=== PATIENT | male | born 1930 | race Caucasian/White ===

== ENCOUNTER → 2016-12-13 | Outpatient (CLI) | payer OTHER ==
[~2016-12-13] MED LIST: /WARF25TA OR; /WARF25TA PO; ACET65TA OR; ALLOPOW4 PO; ASCO25TA PO; ASPI81TA85 PO; AUGM875T27 PO; BISO5TAB5 PO; CLOP75TA2 PO; COLA100C2 OR; COUM2.5T11 PO; DOXYCYCLINE PO; FERR325T OR; FLAG250T PO; GABA-282 PO; GABAPOW41 PO; HYDR25TA6 OR; LISI20TA PO; LISIPOW OR; MULTIVIT PO; NEUR400C OR; NEUROTIN PO; PERC2.5T PO; PERC5TAB8 OR; PLAV75TA38 PO; SIMV20TA2 PO; SIMVASTIN PO; TRAM50TA2 OR; TYLE167L PO; VIT D 2000 PO; VITA100037 PO; VITA100072 PO; VITA500C OR; VITA500T53 PO; ZYLO300T4 PO
--- NOTE | 2016-12-13 17:45 | REP ---
LEFT NONVASCULAR CALF ULTRASOUND: HISTORY: Pain and swelling. Multiple ultrasonographic images of the left calf show no cystic or solid masses. This examination does not rule out a calf DVT. In order to rule out or rule in a calf DVT, magnetic resonance venography could be performed. Signed by Rene Novak DO 12/13/2016 06:04 P
--- NOTE | 2016-12-13 17:46 | REP ---
LEFT LOWER EXTREMITY ULTRASOUND: HISTORY: Pain and swelling. TECHNIQUE: Multiple ultrasonographic images of the deep venous structures of the left thigh were obtained from the common femoral vein to the popliteal vein along with Doppler interrogation and color flow Doppler images. FINDINGS: There is no abnormal echogenic material seen within any of the visualized deep venous structures that would suggest acute thrombosis. Coaptation is unremarkable throughout. Doppler interrogation shows an expected response to respiratory variability and augmentation. The color flow images show what appears to be a normal vascular pattern throughout. IMPRESSION: There is no ultrasonographic evidence of deep venous thrombosis involving any of the visualized deep venous structures of the left thigh, as described above. Signed by Rene Novak DO 12/13/2016 06:03 P
== END ==
LOC: M RAD 16:37
PROVIDERS: ATTEND Physician Assistant
DX: R22.42 Localized swelling, mass and lump, left lower limb (principal)

== ENCOUNTER 2017-01-05 15:40 | Emergency (ER) | payer OTHER ==
[~2017-01-05] VITALS: Ht 167.6 cm; Wt 73.1 kg
[~2017-01-05 15:40] MED LIST changes: -AUGM875T27 PO; +AUGM875T28 PO; -COUM2.5T11 PO; +COUM2.5T17 PO; +PLAV1TAB2 PO; -PLAV75TA38 PO; -VITA100037 PO; +VITA100067 PO
[2017-01-05] MEDS ORDERED: GABA-283 (15:56)
[2017-01-05] MEDS ORDERED: CARV6.25 (15:56)
[2017-01-05] MEDS ORDERED: CLOP75TA2 (15:56)
--- NOTE | 2017-01-05 16:42 | REP ---
PORTABLE CHEST: There is no evidence of acute infiltrate. No pleural effusion is seen. The heart is normal in size. The mediastinal silhouette is unremarkable. The visualized osseous structures are intact. Multiple sternal wires are present. IMPRESSION: No acute pulmonary disease. Signed by Broderick Franklin MD 01/05/2017 05:16 P
[2017-01-05 17:01] LABS: BASO % 0.5 % (0.0-1.0); EOS # 0.1 K/mm3 (0.0-0.50); EOS % 2.8 % (0.0-3.0); LARGE UNSTAINED CELL # 0.1 K/mm3 (0.0-0.4); LARGE UNSTAINED CELL % 2.3 % (0.0-4.0); LYMPH # 0.9 K/mm3 (1.5-4.5); MEAN CORPUSCULAR HEMOGLOBIN 39.4 pg (27.0-33.0); MEAN CORPUSCULAR HGB CONC 36.1 g/dl (32.0-36.5); MEAN CORPUSCULAR VOLUME 109.1 fl (80.0-96.0); MONO # 0.3 K/mm3 (0.0-0.8); MONO % 9.9 % (0.0-5.0); NEUTROPHILS % 60.6 % (36.0-66.0); PLATELET COUNT, AUTOMATED 133 k/mm3 (150-450); RED CELL DISTRIBUTION WIDTH 15.9 % (11.5-14.5); WHITE BLOOD COUNT 3.2 K/mm3 (4.0-10.0)
[2017-01-05 17:03] LABS: INR 0.94
[2017-01-05 17:17] LABS: ALBUMIN 3.4 GM/DL (3.2-5.2); ALBUMIN/GLOBULIN RATIO 1.13 (1.00-1.93); ALKALINE PHOSPHATASE 106 U/L (45-117); ALT/SGPT 23 U/L (12-78); ANION GAP 7 MEQ/L (8-16); AST/SGOT 26 U/L (15-37); BILIRUBIN,DIRECT 0.1 MG/DL (0.0-0.2); BILIRUBIN,TOTAL 0.7 MG/DL (0.2-1.0); BLOOD UREA NITROGEN 34 MG/DL (7-18); CALCIUM LEVEL 8.7 MG/DL (8.8-10.2); CARBON DIOXIDE LEVEL 26 MEQ/L (21-32); CHLORIDE LEVEL 108 MEQ/L (98-107); CREATININE FOR GFR 1.58 MG/DL (0.70-1.30); FREE T4 0.81 NG/DL (0.76-1.46); GLOMERULAR FILTRATION RATE 44.5 (>35); GLUCOSE, FASTING 125 MG/DL (83-110); POTASSIUM SERUM 4.4 MEQ/L (3.5-5.1); SODIUM LEVEL 141 MEQ/L (136-145); TOTAL PROTEIN 6.4 GM/DL (6.4-8.2)
[2017-01-05 17:19] LABS: ANISOCYTOSIS 1+
[2017-01-05] MEDS ORDERED: ASPIRIN 81 MG CHEW TABLET PO ONE (18:00)
[2017-01-05 19:33] VITALS: BP 143/65
--- NOTE | 2017-01-06 06:04 | ECGEPIP ---
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
== END 2017-01-05 19:35 | disposition short-term general hospital (02) ==
LOC: M ED 16:56
DX: I20.0 Unstable angina (principal); I12.9 Hypertensive chronic kidney disease with stage 1 through stage 4 chronic kidney disease, or unspecified chronic kidney disease; N18.3 Chronic kidney disease, stage 3 (moderate); E78.5 Hyperlipidemia, unspecified; K57.90 Diverticulosis of intestine, part unspecified, without perforation or abscess without bleeding; Z95.5 Presence of coronary angioplasty implant and graft; Z87.891 Personal history of nicotine dependence; Z79.899 Other long term (current) drug therapy; Z88.2 Allergy status to sulfonamides; Z88.5 Allergy status to narcotic agent

== ENCOUNTER → 2017-01-30 | Outpatient (REF) | payer OTHER ==
[~2017-01-30] MED LIST changes: +CARV6.25; +CLOP75TA2; +GABA-283; +MECL-68 PO; +MINO1CAP
== END ==
LOC: M LAB REF 12:54
PROVIDERS: ATTEND Internal Medicine
DX: E78.00 Pure hypercholesterolemia, unspecified (principal)

== ENCOUNTER 2017-02-01 08:03 | Outpatient (RCR) | payer OTHER ==
[~2017-02-01 08:03] MED LIST changes: -MECL-68 PO; -MINO1CAP
[2017-02-06] MEDS ORDERED: MINO1CAP (13:27)
[2017-02-06] MEDS ORDERED: MECL-68 PO (15:18)
== END 2017-02-13 ==
LOC: M CR 08:03
PROVIDERS: ATTEND Internal Medicine Cardiovascular Disease
DX: Z98.61 Coronary angioplasty status (principal); I25.10 Atherosclerotic heart disease of native coronary artery without angina pectoris

== ENCOUNTER 2017-02-06 12:49 | Emergency (ER) | payer OTHER ==
[~2017-02-06] VITALS: Ht 167.6 cm; Wt 70.9 kg
[2017-02-06] MEDS ORDERED: NS 500 ML IV ONE (13:15)
[2017-02-06] MEDS ORDERED: MINO1CAP (13:27)
[2017-02-06 14:16] LABS: BASO # 0.1 K/mm3 (0.0-0.2); BASO % 2.8 % (0.0-1.0); EOS # 0.1 K/mm3 (0.0-0.50); EOS % 3.9 % (0.0-3.0); LARGE UNSTAINED CELL # 0.1 K/mm3 (0.0-0.4); LARGE UNSTAINED CELL % 4.3 % (0.0-4.0); LYMPH # 0.6 K/mm3 (1.5-4.5); LYMPH % 18.7 % (24.0-44.0); MEAN CORPUSCULAR HEMOGLOBIN 37.9 pg (27.0-33.0); MEAN CORPUSCULAR HGB CONC 34.7 g/dl (32.0-36.5); MEAN CORPUSCULAR VOLUME 109.2 fl (80.0-96.0); MONO # 0.3 K/mm3 (0.0-0.8); MONO % 8.4 % (0.0-5.0); NEUTROPHILS # 2.1 K/mm3 (1.8-7.7); NEUTROPHILS % 61.9 % (36.0-66.0); PLATELET COUNT, AUTOMATED 139 k/mm3 (150-450); RED CELL DISTRIBUTION WIDTH 15.7 % (11.5-14.5); WHITE BLOOD COUNT 3.4 K/mm3 (4.0-10.0)
[2017-02-06 14:30] LABS: ALBUMIN 3.4 GM/DL (3.2-5.2); ALBUMIN/GLOBULIN RATIO 1.31 (1.00-1.93); BILIRUBIN,DIRECT 0.2 MG/DL (0.0-0.2); BILIRUBIN,TOTAL 0.7 MG/DL (0.2-1.0); CALCIUM LEVEL 8.9 MG/DL (8.8-10.2); CREATININE FOR GFR 1.45 MG/DL (0.70-1.30); GLOMERULAR FILTRATION RATE 49.1 (>35)
[2017-02-06] MEDS ORDERED: MECLIZINE 25 MG TABLET PO ONE (15:00)
[2017-02-06] MEDS ORDERED: MECL-68 PO (15:18)
[2017-02-06 15:22] VITALS: BP 138/60
--- NOTE | 2017-02-07 09:00 | ECGEPIP ---
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
== END 2017-02-06 15:34 | disposition home or self-care (01) ==
LOC: M ED 12:49
DX: R42 Dizziness and giddiness (principal); D61.818 Other pancytopenia; Z95.1 Presence of aortocoronary bypass graft; Z98.61 Coronary angioplasty status; Z88.2 Allergy status to sulfonamides; Z88.5 Allergy status to narcotic agent; Z79.82 Long term (current) use of aspirin; Z79.899 Other long term (current) drug therapy

== ENCOUNTER 2017-03-15 10:15 | Outpatient (RCR) | payer OTHER ==
[~2017-03-15 10:15] MED LIST changes: +MECL-68 PO; +MINO1CAP
== END 2017-03-16 ==
LOC: M CR 10:15
PROVIDERS: ATTEND Internal Medicine Cardiovascular Disease
DX: Z98.61 Coronary angioplasty status (principal); I25.10 Atherosclerotic heart disease of native coronary artery without angina pectoris

== ENCOUNTER 2017-04-14 11:07 | Outpatient (RCR) | payer OTHER | END 2017-04-15 | LOC: M CR 11:07 | PROVIDERS: ATTEND Internal Medicine Cardiovascular Disease | DX: Z98.61 Coronary angioplasty status (principal); I25.10 Atherosclerotic heart disease of native coronary artery without angina pectoris ==

== ENCOUNTER → 2017-08-08 | Outpatient (REF) | payer OTHER ==
[2017-08-08 20:20] LABS: FOLATE 20.9 NG/ML; VITAMIN B12 LEVEL 913 PG/ML
[2017-08-08 20:21] LABS: IRON (FE) 93 UG/DL (65-175); PERCENT SATURATION 43.3 % (19.7-50.0); TOTAL IRON BINDING CAPACITY 215 UG/DL (250-450); TOTAL PROTEIN 6.1 GM/DL (6.4-8.2)
[2017-08-10 10:42] LABS: ALBUMIN 3.82 GM/DL (3.29-5.55); ALBUMIN % 62.7 % (55.8-66.1); ALPHA-1-GLOBULIN % 5.2 % (2.9-4.9); ALPHA-1-GLOBULINS 0.32 GM/DL (0.17-0.41); ALPHA-2-GLOBULINS 0.54 GM/DL (0.42-0.99); ALPHA-2-GLOBULINS % 8.9 % (7.1-11.8); BETA-1-GLOBULINS % 4.9 % (4.7-7.2); BETA-2-GLOBULINS 0.25 GM/DL (0.19-0.55); BETA-2-GLOBULINS % 4.1 % (3.2-6.5); GAMMA GLOBULIN % 14.2 % (11.1-18.8); GAMMA GLOBULINS 0.87 GM/DL (0.65-1.58)
== END ==
LOC: M LAB REF 17:25
DX: D51.9 Vitamin B12 deficiency anemia, unspecified (principal); D64.9 Anemia, unspecified
CPT/HCPCS: 82746

== ENCOUNTER → 2017-08-21 | Outpatient (CLI) | payer OTHER | LOC: M RAD 10:07 | DX: M79.605 Pain in left leg (principal) | CPT/HCPCS: 93971 ==

== ENCOUNTER 2017-12-07 08:02 | Emergency (ER) | payer OTHER ==
[2017-12-07 09:02] LABS: BASO % 0.8 % (0.0-1.0); EOS # 0.1 10^3/uL (0.0-0.50); HEMATOCRIT 29.5 % (42.0-52.0); HEMOGLOBIN 10.1 g/dl (13.5-17.5); LYMPH # 0.8 10^3/uL (1.5-4.5); LYMPH % 20.5 % (24.0-44.0); MEAN CORPUSCULAR HEMOGLOBIN 36.5 pg (27.0-33.0); MEAN CORPUSCULAR HGB CONC 34.2 g/dl (32.0-36.5); MEAN CORPUSCULAR VOLUME 106.5 fl (80.0-96.0); MONO # 0.5 10^3/uL (0.0-0.8); MONO % 12.4 % (0.0-5.0); NEUTROPHILS # 2.5 10^3/uL (1.8-7.7); NEUTROPHILS % 63.3 % (36.0-66.0); PLATELET COUNT, AUTOMATED 105 10^3/uL (150-450); RED BLOOD COUNT 2.77 10^6/uL (4.30-6.10); RED CELL DISTRIBUTION WIDTH 15.6 % (11.5-14.5)
[2017-12-07 10:09] LABS: ANION GAP 6 MEQ/L (8-16); BLOOD UREA NITROGEN 28 MG/DL (7-18); CALCIUM LEVEL 8.2 MG/DL (8.8-10.2); CARBON DIOXIDE LEVEL 26 MEQ/L (21-32); CHLORIDE LEVEL 112 MEQ/L (98-107); CPK CREATINE PHOSPHOKINASE 72 U/L (39-308); CREATININE FOR GFR 1.37 MG/DL (0.70-1.30); GLOMERULAR FILTRATION RATE 52.3 (>35); GLUCOSE, FASTING 105 MG/DL (70-100); POTASSIUM SERUM 4.3 MEQ/L (3.5-5.1); SODIUM LEVEL 144 MEQ/L (136-145); TROPONIN I < 0.02 NG/ML (< 0.10)
[2017-12-07 10:10] LABS: CK-MB VALUE MASS 4.4 NG/ML (<3.6); MB/CK RELATIVE INDEX 6.11 (< OR =4)
[2017-12-07 11:38] LABS: CPK CREATINE PHOSPHOKINASE 63 U/L (39-308); TROPONIN I < 0.02 NG/ML (< 0.10)
[2017-12-07 11:39] LABS: CK-MB VALUE MASS 4.2 NG/ML (<3.6); MB/CK RELATIVE INDEX 6.66 (< OR =4)
== END 2017-12-07 12:42 | disposition home or self-care (01) ==
LOC: M ED 08:02
DX: I20.8 Other forms of angina pectoris (principal); R00.1 Bradycardia, unspecified; I25.10 Atherosclerotic heart disease of native coronary artery without angina pectoris; I25.2 Old myocardial infarction; I10 Essential (primary) hypertension; E78.5 Hyperlipidemia, unspecified; K21.9 Gastro-esophageal reflux disease without esophagitis; M10.9 Gout, unspecified; N18.3 Chronic kidney disease, stage 3 (moderate); Z87.442 Personal history of urinary calculi; Z95.5 Presence of coronary angioplasty implant and graft; Z95.1 Presence of aortocoronary bypass graft; Z79.82 Long term (current) use of aspirin; Z79.899 Other long term (current) drug therapy; Z88.5 Allergy status to narcotic agent; Z88.2 Allergy status to sulfonamides
CPT/HCPCS: 71045

== ENCOUNTER 2017-12-16 07:51 | Emergency (ER) | payer OTHER ==
[2017-12-16] MEDS: NORCO, ANEXSIA 5/325MG TABLET (HYDROcodone/ACETAMINOPHEN) PO (09:14)
== END 2017-12-16 09:41 | disposition home or self-care (01) ==
LOC: M ED 07:51
DX: M51.36 Other intervertebral disc degeneration, lumbar region (principal); M51.37 Other intervertebral disc degeneration, lumbosacral region; I12.9 Hypertensive chronic kidney disease with stage 1 through stage 4 chronic kidney disease, or unspecified chronic kidney disease; E78.9 Disorder of lipoprotein metabolism, unspecified; N18.9 Chronic kidney disease, unspecified; Z95.5 Presence of coronary angioplasty implant and graft; Z95.1 Presence of aortocoronary bypass graft; Z98.1 Arthrodesis status; Z87.891 Personal history of nicotine dependence; Z88.5 Allergy status to narcotic agent; Z88.2 Allergy status to sulfonamides; Z79.899 Other long term (current) drug therapy; Z79.82 Long term (current) use of aspirin
CPT/HCPCS: 72131

== ENCOUNTER 2018-05-02 11:25 | Day surgery (SDC) | payer OTHER ==
[~2018-05-02 11:25] MED LIST changes: -/WARF25TA OR; -/WARF25TA PO; -ACET65TA OR; -ALLOPOW4 PO; -ASCO25TA PO; -ASPI81TA85 PO; -AUGM875T28 PO; -BISO5TAB5 PO; -CARV6.25; -CLOP75TA2; -CLOP75TA2 PO; -COLA100C2 OR; -COUM2.5T17 PO; -DOXYCYCLINE PO; -FERR325T OR; -FLAG250T PO; -GABA-282 PO; -GABA-283; -GABAPOW41 PO; -HYDR25TA6 OR; +LIDOCAINE 2% INJ 100 MG/5 ML SDV (FOR ANES.) As Ordered; -LISI20TA PO; -LISIPOW OR; -MECL-68 PO; -MINO1CAP; -MULTIVIT PO; -NEUR400C OR; -NEUROTIN PO; -PERC2.5T PO; -PERC5TAB8 OR; -PLAV1TAB2 PO; +PROPOFOL 200 MG/20 ML VIAL As Ordered; -SIMV20TA2 PO; -SIMVASTIN PO; -TRAM50TA2 OR; -TYLE167L PO; -VIT D 2000 PO; -VITA100067 PO; -VITA100072 PO; -VITA500C OR; -VITA500T53 PO; -ZYLO300T4 PO
== END 2018-05-02 13:51 | disposition home or self-care (01) ==
LOC: M OPP 11:25
DX: K64.0 First degree hemorrhoids (principal); K57.30 Diverticulosis of large intestine without perforation or abscess without bleeding; R63.4 Abnormal weight loss; R93.3 Abnormal findings on diagnostic imaging of other parts of digestive tract; I10 Essential (primary) hypertension; E78.00 Pure hypercholesterolemia, unspecified; E03.9 Hypothyroidism, unspecified; K21.9 Gastro-esophageal reflux disease without esophagitis; M12.9 Arthropathy, unspecified; D64.9 Anemia, unspecified; I25.810 Atherosclerosis of coronary artery bypass graft(s) without angina pectoris; Z79.899 Other long term (current) drug therapy; Z88.2 Allergy status to sulfonamides; Z88.5 Allergy status to narcotic agent; Z87.891 Personal history of nicotine dependence; Z95.5 Presence of coronary angioplasty implant and graft; Z98.1 Arthrodesis status
CPT/HCPCS: 45378

== ENCOUNTER 2018-07-10 16:54 | Emergency (ER) | payer OTHER ==
[~2018-07-10] VITALS: Ht 165.1 cm; Wt 64.1 kg
[~2018-07-10 16:54] MED LIST changes: +/WARF25TA OR; +/WARF25TA PO; +ACET65TA OR; +ALLOPOW4 PO; +ASCO25TA PO; +ASPI81TA85 PO; +ATOR1TAB21 PO; +AUGM875T28 PO; +BISO5TAB5 PO; +CARV6.25; +CLOP75TA2; +CLOP75TA2 PO; +COLA100C2 OR; +COUM2.5T17 PO; +DOXY-350 PO; +DOXYCYCLINE PO; +FERR325T OR; +FLAG250T PO; +GABA-843 PO; +GABA-845 PO; +GABAPOW41 PO; +HYDR25TA6 OR; +ISOS30TA4 PO; +LEVO25TA5 PO; +LEXA1TAB PO; -LIDOCAINE 2% INJ 100 MG/5 ML SDV (FOR ANES.) As Ordered; +LISI20TA PO; +LISIPOW OR; +MECL-68 PO; +MINO100C63; +MULTIVIT PO; +NEUR400C OR; +NEUROTIN PO; +NITR0.4S14 SL; +NORCOTAB PO; +PANT40TA3 PO; +PERC2.5T PO; +PERC5TAB8 OR; +PLAV1TAB2 PO; -PROPOFOL 200 MG/20 ML VIAL As Ordered; +SIMV20TA2 PO; +SIMVASTIN PO; +TRAM50TA2 OR; +TYLE167L PO; +VIT D 2000 PO; +VITA100067 PO; +VITA100072 PO; +VITA500C OR; +VITA500T53 PO; +ZYLO300T6 PO
[2018-07-10 18:13] LABS: BASO % 0.3 % (0.0-1.0); EOS # 0.1 10^3/uL (0.0-0.50); HEMATOCRIT 30.9 % (42.0-52.0); HEMOGLOBIN 10.6 g/dl (13.5-17.5); LYMPH # 0.6 10^3/uL (1.5-4.5); LYMPH % 20.5 % (24.0-44.0); MEAN CORPUSCULAR HEMOGLOBIN 36.7 pg (27.0-33.0); MEAN CORPUSCULAR HGB CONC 34.3 g/dl (32.0-36.5); MEAN CORPUSCULAR VOLUME 106.9 fl (80.0-96.0); MONO # 0.6 10^3/uL (0.0-0.8); MONO % 19.2 % (0.0-5.0); NEUTROPHILS # 1.7 10^3/uL (1.8-7.7); NEUTROPHILS % 57.3 % (36.0-66.0); PLATELET COUNT, AUTOMATED 135 10^3/uL (150-450); RED BLOOD COUNT 2.89 10^6/uL (4.30-6.10)
[2018-07-10] MEDS ORDERED: IPRATROPIUM 0.5MG/ALBUTEROL 2.5MG INH SOL UD 3ML (DUONEB)(J7620) NEB ONE (18:15)
--- NOTE | 2018-07-10 18:33 | REP ---
Clinical: Shortness of breath . Comparison: 12/07/2017 . Findings: The mediastinum and cardiac silhouette are stable and within normal limits for portable technique. The lung chávez demonstrates chronic stable changes without acute consolidation, effusion, or pneumothorax. Evidence of prior sternotomy. Impression: No acute cardiopulmonary process appreciated. Electronically Signed by Reagan Sin MD 07/10/2018 06:24 P
[2018-07-10 18:37] LABS: CALCIUM LEVEL 8.4 MG/DL (8.8-10.2); CREATININE FOR GFR 1.47 MG/DL (0.70-1.30); GLOMERULAR FILTRATION RATE 48.2 (>35); POTASSIUM SERUM 3.9 MEQ/L (3.5-5.1)
[2018-07-10 18:40] LABS: CPK CREATINE PHOSPHOKINASE 49 U/L (39-308); MB/CK RELATIVE INDEX 2.65 (< OR =4); NT-PRO BNP 372 PG/ML (<450); TROPONIN I < 0.02 NG/ML (< 0.10)
[2018-07-10] MEDS ORDERED: ALBUTEROL 90 MCG/ACT 8GM HFA INHALER INH ONE (19:00)
[2018-07-10] MEDS ORDERED: ACETAMINOPHEN TAB 650MG DOSE (2X325MG) PO ONE (19:45)
[2018-07-10 19:57] VITALS: BP 134/65
--- NOTE | 2018-07-11 14:54 | ECGEPIP ---
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
== END 2018-07-10 19:58 | disposition home or self-care (01) ==
LOC: M ED 16:54
DX: J06.9 Acute upper respiratory infection, unspecified (principal); I11.9 Hypertensive heart disease without heart failure; I25.2 Old myocardial infarction; Z95.5 Presence of coronary angioplasty implant and graft; Z95.1 Presence of aortocoronary bypass graft; Z87.891 Personal history of nicotine dependence; Z88.5 Allergy status to narcotic agent; Z88.2 Allergy status to sulfonamides; Z79.899 Other long term (current) drug therapy; Z79.82 Long term (current) use of aspirin

== ENCOUNTER → 2018-07-23 | Outpatient (REF) | payer MEDICARE, OTHER ==
[2018-07-23 13:08] LABS: PERCENT SATURATION 38.9 % (19.7-50.0)
== END ==
LOC: M LAB REF 11:52
PROVIDERS: ATTEND Internal Medicine
DX: D64.9 Anemia, unspecified (principal)

== ENCOUNTER → 2018-08-27 | Outpatient (REF) | payer MEDICARE | LOC: M SFHCLERA 12:16 | PROVIDERS: ATTEND Dermatology | DX: L73.9 Follicular disorder, unspecified (principal) ==

== ENCOUNTER → 2018-11-19 | Outpatient (REF) | payer MEDICARE ==
[~2018-11-19] MED LIST changes: -/WARF25TA OR; -/WARF25TA PO; -ASCO25TA PO; +COUM1TAB18 OR; +COUM1TAB18 PO; +HYDR-3715 PO; -NORCOTAB PO; +VITA100018 PO; -VITA100072 PO; +VITA1TAB23 PO
== END ==
LOC: M SFHCPLAZ 13:45
PROVIDERS: ATTEND Dermatology
DX: D23.5 Other benign neoplasm of skin of trunk (principal); D23.71 Other benign neoplasm of skin of right lower limb, including hip; R21 Rash and other nonspecific skin eruption

== ENCOUNTER → 2019-02-11 | Outpatient (CLI) | payer MEDICARE ==
--- NOTE | 2019-02-11 17:33 | REP ---
Clinical: Acute headache . Comparison: 11/28/2013 . Findings: The ventricles, sulci, and cisterns are normal in position and appearance. Franklin-white differentiation is maintained. No acute intracranial hemorrhage, mass/mass effect, pathology or trauma/injury. No evidence for acute infarction. No extra-axial fluid collection. Calvarium is intact. Paranasal sinuses and mastoid air cells are clear. Impression: Normal noncontrast head CT. No evidence for acute intracranial pathology or trauma/injury. Electronically Signed by Reagan Sin MD 02/11/2019 05:25 P
== END ==
LOC: M RAD 17:12
PROVIDERS: ATTEND Physician Assistant
DX: R51 Headache (principal)

== ENCOUNTER → 2019-02-22 | Outpatient (CLI) | payer MEDICARE ==
[~2019-02-22] MED LIST changes: +BISO5TAB14 PO; -BISO5TAB5 PO; +CARV3.12 PO; -MECL-68 PO; +MECL1TAB31 PO; -SIMV20TA2 PO; +SIMV20TA22 PO
--- NOTE | 2019-02-23 09:59 | REP ---
CHEST, TWO VIEWS: Two views of the chest are performed. Comparison multiple prior studies including 07/10/2018. There is no acute infiltrate. Lungs appear clear. Heart is normal in size. There is mild calcification and tortuosity of the thoracic aorta. The mediastinal silhouette is unchanged. Multiple sternal wires are present. There are degenerative changes of the spine. IMPRESSION: No evidence of acute infiltrate. With continued symptoms of cough and weight loss, recommend CT of the chest. Electronically Signed by Broderick Franklin MD 02/25/2019 11:42 A
== END ==
LOC: M RAD 16:09
PROVIDERS: ATTEND Nurse Practitioner Adult Health
DX: R05 Cough (principal); R63.4 Abnormal weight loss

== ENCOUNTER → 2019-03-04 | Outpatient (REF) | payer MEDICARE ==
[~2019-03-04] MED LIST changes: -BISO5TAB14 PO; +BISO5TAB5 PO; -CARV3.12 PO; +MECL-68 PO; -MECL1TAB31 PO; +SIMV20TA2 PO; -SIMV20TA22 PO
[2019-03-06 20:59] LABS: FOLATE 11.2 NG/ML
== END ==
LOC: M LAB REF 16:57
PROVIDERS: ATTEND Internal Medicine
DX: R71.8 Other abnormality of red blood cells (principal)

== ENCOUNTER → 2019-03-22 | Outpatient (CLI) | payer MEDICARE ==
[~2019-03-22] MED LIST changes: -BISO5TAB5 PO; +BISO5TAB9 PO
--- NOTE | 2019-03-22 08:18 | REP ---
Clinical: Cough. Technique: Axial noncontrast images from the thoracic inlet to the upper abdomen with coronal and sagittal re-formations. Comparison: None. Findings: Lung chávez are well-aerated and suggest mild emphysematous changes. Very minimal scattered chronic scarring is appreciated without consolidation, obvious nodule or mass lesion. No effusion. No pneumothorax. Tracheobronchial tree is patent. Mediastinum demonstrates atherosclerotic changes and evidence for sternotomy and CABG. No aortic aneurysm or cardiomegaly. No pericardial effusion. Musculoskeletal structures demonstrate degenerative changes without focal osseous abnormality. Impression: Mild chronic age-related changes. No acute mediastinal or pleuroparenchymal process. Electronically Signed by Reagan Sin MD 03/22/2019 08:09 A
== END ==
LOC: M RAD 07:40
PROVIDERS: ATTEND Nurse Practitioner Adult Health
DX: R05 Cough (principal); R63.4 Abnormal weight loss; J98.4 Other disorders of lung

== ENCOUNTER 2019-05-13 10:55 | Emergency (ER) | payer MEDICARE ==
[~2019-05-13] VITALS: Ht 165.1 cm; Wt 65.9 kg
--- NOTE | 2019-05-13 12:25 | REP ---
Clinical: Acute chest pain . Comparison: 02/22/2019 . Findings: The mediastinum and cardiac silhouette are stable and within normal limits for portable technique. Evidence of prior sternotomy and CABG. The lung chávez are clear without acute consolidation, effusion, or pneumothorax. Skeletal structures are intact. Impression: No acute cardiopulmonary process appreciated. Electronically Signed by Reagan Sin MD 05/13/2019 12:16 P
[2019-05-13 12:38] LABS: BASO % 0.8 % (0.0-1.0); HEMATOCRIT 29.1 % (42.0-52.0); HEMOGLOBIN 9.6 g/dl (13.5-17.5); LYMPH # 0.7 10^3/uL (1.5-5.0); LYMPH % 18.4 % (24.0-44.0); MEAN CORPUSCULAR HEMOGLOBIN 35.2 pg (27.0-33.0); MEAN CORPUSCULAR VOLUME 106.6 fl (80.0-96.0); MONO # 0.6 10^3/uL (0.0-0.8); MONO % 15.6 % (0.0-5.0); NEUTROPHILS # 2.5 10^3/uL (1.5-8.5); NEUTROPHILS % 63.2 % (36.0-66.0); PLATELET COUNT, AUTOMATED 133 10^3/uL (150-450); RED BLOOD COUNT 2.73 10^6/uL (4.30-6.10); WHITE BLOOD COUNT 3.9 10^3/uL (4.0-10.0)
[2019-05-13] MEDS ORDERED: GABA-845 PO (12:50)
[2019-05-13 12:52] LABS: INR 1.09; PROTHROMBIN TIME 13.8 SECONDS (11.8-14.0)
[2019-05-13 12:53] LABS: PARTIAL THROMBOPLASTIN TIME 28.1 SECONDS (25.0-38.4)
[2019-05-13 13:18] LABS: ALBUMIN 3.3 GM/DL (3.2-5.2); ALT/SGPT 14 U/L (12-78); BILIRUBIN,DIRECT < 0.1 MG/DL (0.0-0.2); BILIRUBIN,TOTAL 0.4 MG/DL (0.2-1.0); BLOOD UREA NITROGEN 28 MG/DL (7-18); CALCIUM LEVEL 9.2 MG/DL (8.8-10.2); CARBON DIOXIDE LEVEL 27 MEQ/L (21-32); CHLORIDE LEVEL 107 MEQ/L (98-107); CK-MB VALUE MASS 14.2 NG/ML (<3.6); CPK CREATINE PHOSPHOKINASE 89 U/L (39-308); CREATININE FOR GFR 1.48 MG/DL (0.70-1.30); FREE T4 0.67 NG/DL (0.76-1.46); GLOMERULAR FILTRATION RATE 47.8 (>35); GLUCOSE, FASTING 113 MG/DL (70-100); LIPASE 124 U/L (73-393); MB/CK RELATIVE INDEX 15.96 (< OR =4); POTASSIUM SERUM 4.3 MEQ/L (3.5-5.1); SODIUM LEVEL 141 MEQ/L (136-145); TOTAL PROTEIN 6.2 GM/DL (6.4-8.2); TROPONIN I 0.95 NG/ML (< 0.10)
[2019-05-13] MEDS ORDERED: HEPARIN DRIP 25,000 UNITS in IV 1 EA IV SCH (13:35)
[2019-05-13] MEDS ORDERED: CLOPIDOGREL 300 MG TAB (PLAVIX) PO ONE (13:45)
[2019-05-13] MEDS ORDERED: ASPIRIN 81 MG CHEW TABLET PO ONE (13:45)
[2019-05-13] MEDS ORDERED: HEPARIN SOD (PORCINE) 5000 UNITS/ML VIAL IV ONE (13:45)
[2019-05-13 15:05] VITALS: BP 152/70
--- NOTE | 2019-05-13 20:34 | ECGEPIP ---
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
== END 2019-05-13 15:45 | disposition short-term general hospital (02) ==
LOC: M ED 10:55
DX: I21.4 Non-ST elevation (NSTEMI) myocardial infarction (principal); R00.2 Palpitations; I45.19 Other right bundle-branch block; I10 Essential (primary) hypertension; F03.90 Unspecified dementia, unspecified severity, without behavioral disturbance, psychotic disturbance, mood disturbance, and anxiety; F32.9 Major depressive disorder, single episode, unspecified; Z95.5 Presence of coronary angioplasty implant and graft; Z95.1 Presence of aortocoronary bypass graft; Z79.82 Long term (current) use of aspirin; Z79.899 Other long term (current) drug therapy; Z88.2 Allergy status to sulfonamides; Z88.5 Allergy status to narcotic agent

== ENCOUNTER → 2019-05-21 | Outpatient (REF) | payer MEDICARE ==
[2019-05-21 18:10] LABS: PERCENT SATURATION 35.3 % (19.7-50.0)
[2019-05-21 18:21] LABS: FOLATE 9.7 NG/ML
== END ==
LOC: M LAB REF 16:43
PROVIDERS: ATTEND Internal Medicine
DX: D64.9 Anemia, unspecified (principal); I12.9 Hypertensive chronic kidney disease with stage 1 through stage 4 chronic kidney disease, or unspecified chronic kidney disease

== ENCOUNTER 2019-06-07 12:10 | Outpatient (RCR) | payer MEDICARE ==
[~2019-06-07 12:10] MED LIST changes: -SIMV20TA2 PO; +SIMV20TA22 PO
[2019-06-07] MEDS ORDERED: CARV3.12 PO (12:39)
[2019-06-07] MEDS ORDERED: PLAV1TAB2 PO (12:39)
--- NOTE | 2019-06-07 14:03 | CARECAPL ---
Assessment Account #s: Initial Assessment General Diagnoses: Stent, NSTEMI Date of event: May 14, 2019 Physician: Bari Case MD Allergies: Coded Allergies: Sulfa (Sulfonamide Antibiotics) (Verified Adverse Reaction, Unknown, POTASSIUM ELEVATION, 05/13/19) oxycodone (Verified Adverse Reaction, Unknown, MAKES HIM FEEL "LOOPY", 05/13/19) Date Entered Program: Jun 07, 2019 Risk strat for cardiac event: High Exercise Date: Jun 07, 2019 Assessment: Initial Assessment Stages of change: Contemplate Exercise Prescription Plan to build strength and endurance through a monitored exercise program and to educate about the risks of cardiac disease and healthy life styles Modalities initiated: Treadmill (will add), Cardio-Strider (may add), Nustep (will add), Arm Aerometer (will add), Dumbells (will add), Recumbent Bike (will add) Frequency: 2 Duration (Minutes) 30 - 60 minutes total exercise a day. 15 - 20 work intervals in minutes. PRN rest intervals in minutes. Functional Capacity Goal Sustained Metabolic Equivalent of a task (MET) goal of 2-3 for 15-20 minutes. Intensity: 3-Moderate Progression (METS) Increase by: .5 METS every: 2-3 sessions Target Heart Rate rest + 35-40 betablocker therapy Resistance Training: Yes Reps: 6-8 Medications Scheduled Allopurinol (Zyloprim), 300 MG PO DAILY, (Reported) Aspirin (Aspir 81), 81 MG PO DAILY, (Reported) Atorvastatin Calcium (Atorvastatin Calcium), 40 MG PO DAILY, (Reported) Carvedilol (Carvedilol), 3.125 MG PO BID, (Reported) Clopidogrel Bisulfate (Plavix), 75 MG PO DAILY, (Reported) Escitalopram Oxalate (Lexapro), 20 MG PO DAILY, (Reported) Gabapentin (Gabapentin), 400 MG PO BID, (Reported) Levothyroxine Sodium (Levothyroxine Sodium), 25 MCG PO DAILY, (Reported) Pantoprazole Sodium (Pantoprazole Sodium), 40 MG PO DAILY, (Reported) Discontinued Medications Cyanocobalamin (Vitamin B-12) (Vitamin B-12), 1,000 MCG PO DAILY, (Reported) Discontinued Reason: PCP discontinued med Doxycycline Monohydrate (Doxycycline), 100 MG PO Q12H, (Reported) Discontinued Reason: PCP discontinued med Nitroglycerin (Nitroglycerin), 0.4 MG SL NITRO, (Reported) Discontinued Reason: PCP discontinued med Current BP 151/61 Med Change: Yes Target Goals Individual exercise Rx (1) BP 140/90 or 130/80 if DM or CKD (1) Aerobic active 30+min 5 days per week (1) Nutrition Date: Jun 07, 2019 Assessment: Initial Assessment Stages of change: Contemplate Lipid- med/supplement atorvastatin Diabetes Diabetes: No Weight Management Weight (lbs): 146.6 Height (inches): 62 BMI: 26.7 Special Diet: regular Alcohol: special Alcohol Type: beer, liquor Alcohol Amount: 1 Diet Access Tool: Rate your plate Score: 41 Referral to Diabetes education: No Referral to lipid clinic: No Referral to weight mangement p: No Target goal LDL-C<100 if triglycerides are >200 Non-HDL-C should be <130 (1) LDL-C<70 for high risk patients (4) HbA1c<7% (1) BMI<25 Waist cir<40in M/<35in F (1) Education Date: Jun 07, 2019 Assessment: Initial Assessment Learning Barriers: learn Knowledge Test Score: 9 Stages of change: Contemplate Family Support: Yes (daughter) Tobacco use: No Quit: >6 months (quit in 1991) Tobacco Use Cigarettes smoked per day: 20 Smokeless tobacco: No Intervention Referral to smoking cessation: No Individual education and couns: No Tobacco Adjunct: No Target Goals Complete cessation of tobacco use (1). Psychosocial Date: Jun 07, 2019 Assessment: Initial Assessment Psych Test (Initial/Discharge) Tool Used: Other (results faxed to Dr Ray) Score: 9 Intervention Physician Consult: Yes Physician Referral: Yes Psychotropic medication lexapro Target Goal Assess presence or absence of depression using a valid screening tool (1). Maximize coping skills (2). Positive support system (2). Patient/Program Goal Preventative Medication: Yes Aspirin, Yes Clopidogrel, Yes Beta blockade, Yes Statin/OTR lipid Lowering Fall Risk Assess: No Assisstive Device: cane Provider Assessment Provider Assessment: Proceed with rehab Marbella Oakley RN Jun 07, 2019 14:03
== END 2019-06-15 ==
LOC: M CR 12:10
PROVIDERS: ATTEND Internal Medicine
DX: Z98.61 Coronary angioplasty status (principal)

== ENCOUNTER 2019-06-22 15:39 | Emergency (ER) | payer MEDICARE ==
[~2019-06-22] VITALS: Ht 165.1 cm; Wt 65.9 kg
[~2019-06-22 15:39] MED LIST changes: +CARV3.12 PO
[2019-06-22 16:06] LABS: BASO % 0.3 % (0.0-1.0); EOS % 0.7 % (0.0-3.0); HEMATOCRIT 29.7 % (42.0-52.0); HEMOGLOBIN 9.4 g/dl (13.5-17.5); LYMPH # 1.1 10^3/uL (1.5-5.0); LYMPH % 18.4 % (24.0-44.0); MEAN CORPUSCULAR HEMOGLOBIN 34.1 pg (27.0-33.0); MEAN CORPUSCULAR HGB CONC 31.6 g/dl (32.0-36.5); MEAN CORPUSCULAR VOLUME 107.6 fl (80.0-96.0); MONO # 0.6 10^3/uL (0.0-0.8); MONO % 10.4 % (0.0-5.0); NEUTROPHILS # 4.2 10^3/uL (1.5-8.5); NEUTROPHILS % 69.7 % (36.0-66.0); PLATELET COUNT, AUTOMATED 179 10^3/uL (150-450); RED BLOOD COUNT 2.76 10^6/uL (4.30-6.10)
[2019-06-22 16:18] LABS: INR 1.11
[2019-06-22 17:02] LABS: ACETAMINOPHEN LEVEL < 2.0 UG/ML (10.0-30.0); ALBUMIN 3.6 GM/DL (3.2-5.2); ALT/SGPT 14 U/L (12-78); BILIRUBIN,DIRECT 0.3 MG/DL (0.0-0.2); BILIRUBIN,TOTAL 0.9 MG/DL (0.2-1.0); BLOOD UREA NITROGEN 28 MG/DL (7-18); CALCIUM LEVEL 8.7 MG/DL (8.8-10.2); CARBON DIOXIDE LEVEL 27 MEQ/L (21-32); CHLORIDE LEVEL 108 MEQ/L (98-107); CK-MB VALUE MASS 2.7 NG/ML (<3.6); CPK CREATINE PHOSPHOKINASE 76 U/L (39-308); CREATININE FOR GFR 1.74 MG/DL (0.70-1.30); ETHYL ALCOHOL (ETHANOL) 0.003 % (0.000-0.010); GLOMERULAR FILTRATION RATE 39.6 (>35); GLUCOSE, FASTING 115 MG/DL (70-100); LIPASE 109 U/L (73-393); MB/CK RELATIVE INDEX 3.55 (< OR =4); NT-PRO BNP 591 PG/ML (<450); POTASSIUM SERUM 4.2 MEQ/L (3.5-5.1); SALICYLATE LEVEL < 1.7 MG/DL (5.0-30.0); SODIUM LEVEL 142 MEQ/L (136-145); TOTAL PROTEIN 7.1 GM/DL (6.4-8.2); TROPONIN I < 0.02 NG/ML (< 0.10)
[2019-06-22 18:05] VITALS: BP 134/66
--- NOTE | 2019-06-22 18:28 | ECGEPIP ---
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
--- NOTE | 2019-06-23 08:16 | REP ---
AP PORTABLE CHEST: 06/22/2019. COMPARISON: 05/13/2019, CT chest 03/22/2019. CLINICAL HISTORY: Chest pain. FINDINGS: Sternotomy wires are again seen with the heart not enlarged. The aorta is calcified and mildly tortuous but without aneurysm. CP angles are sharply defined. There is no lateral pleural thickening, apical scarring, or pneumothorax. There is a skin fold across the upper chest on the right. Some basilar fibrotic change noted. Lung chávez otherwise clear. Some degenerative changes in the spine. IMPRESSION: 1. Minor basilar fibrotic change with sternotomy wires and the mediastinum was without widening. 2. Coronary stent is seen on the left. 3. A skin fold across the upper chest on the right, no pneumothorax. Electronically Signed by Rajat Zavala MD 06/23/2019 09:09 A
== END 2019-06-22 18:11 | disposition home or self-care (01) ==
LOC: M ED 15:39
DX: I49.8 Other specified cardiac arrhythmias (principal); R00.2 Palpitations; I51.9 Heart disease, unspecified; I10 Essential (primary) hypertension; Z95.1 Presence of aortocoronary bypass graft; Z87.891 Personal history of nicotine dependence; Z82.49 Family history of ischemic heart disease and other diseases of the circulatory system; Z79.02 Long term (current) use of antithrombotics/antiplatelets; Z79.82 Long term (current) use of aspirin; Z79.899 Other long term (current) drug therapy; Z88.2 Allergy status to sulfonamides; Z88.5 Allergy status to narcotic agent
CPT/HCPCS: 71045; 80048; 80076; 82550; 82553; 83690; 83880; 84443; 84484; 85025; 85610; 87040; 93005; 93041; 94760; 99285; G0480

== ENCOUNTER 2019-07-01 16:00 | Outpatient (RCR) | payer MEDICARE ==
--- NOTE | 2019-07-01 18:16 | CARECAPL ---
Assessment Account #s: Re-Assessment I General Diagnoses: Stent, NSTEMI Date of event: May 14, 2019 Physician: Bari Case MD Allergies: Coded Allergies: Sulfa (Sulfonamide Antibiotics) (Verified Adverse Reaction, Unknown, POTASSIUM ELEVATION, 05/13/19) oxycodone (Verified Adverse Reaction, Unknown, MAKES HIM FEEL "LOOPY", 05/13/19) Date Entered Program: Jun 07, 2019 Risk strat for cardiac event: High Exercise Date: Jul 01, 2019 Assessment: Re-Assessment I Stages of change: Contemplate Exercise Prescription Plan TO EDUCATE AND BUILD ENDURANCE THROUGH MONITORED EXERCISE Modalities initiated: Treadmill (METS=2.27/RPE=4), Nustep (METS=2.4/RPE=3), Arm Aerometer (METS=1.7/RPE=4), Dumbells (2#/RPE=4), Recumbent Bike (METS=3.2/RPE=4) Frequency: 3 Duration (Minutes) 30 - 60 minutes total exercise a day. 15 - 20 work intervals in minutes. PRN rest intervals in minutes. Functional Capacity Goal Sustained Metabolic Equivalent of a task (MET) goal of 2.5-3.5 for 15-20 minutes. Intensity: 3-Moderate Progression (METS) Increase by: METS every: sessions Angina with ex: No Target Heart Rate REST +35-40 Resistance Training: Yes Weight (pounds): 2 Reps: 6-8 Resting 110/54 Peak Exercise BP 130/70 Medications Scheduled Allopurinol (Zyloprim), 300 MG PO DAILY, (Reported) Aspirin (Aspir 81), 81 MG PO DAILY, (Reported) Atorvastatin Calcium (Atorvastatin Calcium), 40 MG PO DAILY, (Reported) Carvedilol (Carvedilol), 3.125 MG PO BID, (Reported) Clopidogrel Bisulfate (Plavix), 75 MG PO DAILY, (Reported) Escitalopram Oxalate (Lexapro), 20 MG PO DAILY, (Reported) Gabapentin (Gabapentin), 400 MG PO BID, (Reported) Levothyroxine Sodium (Levothyroxine Sodium), 25 MCG PO DAILY, (Reported) Pantoprazole Sodium (Pantoprazole Sodium), 40 MG PO DAILY, (Reported) Current BP 114/58 Med Change: No Intervention Resistance Training: Yes Education: Self pulse ( INSTRUCTED PATIENT TO TAKE OWN PULSE, REINFORCEMENT WILL BE NEEDED), Ex safety (PATIENT INDEPENDENTLY WARMS UP AND COOLS DOWN PRIOR TO AND FOLLOWING EXERCISE), S/S to report (PATIENT VERBALIZES UNDERSTANDING TO REPORT SOB OR CHEST PAIN WHILE EXERCISING), Low NA diet (PATIENT VERBALIZES UNDERSTANDING OF IMPORTANCE OF LOW NA DIET), BP medication (REVIEWED MEDICATION LIST WITH PT , VERBALIZES UNDERSTANDING OF PURPOSE AND IMPORTANCE OF COMPLIANCE), RPE Scale (PATIENT INDEPENDENTLY RATES EQUIPMENT WITH OUR RPE SCALE), Equipment orientation (ORIENTED TO EACH PIECE OF EQUIPMENT USED), warm up/cool down (VERBALIZES UNDERSTANDING OF WARM UP AND COOL DOWN PRIOR TO AND FOLLOWING EXERCISE), Understand BP (REVIEWED IDEAL B/P, REINFORCEMENT WILL BE NEEDED), Physical Active (PT VERBALIZES UNDERSTANDING OF IMPORTANCE OF CONTINUED EXERCISE FOLLOWING CARDIAC REHAB PROGRAM) Education Goals Met: No (PROGRESSING TOWARD GOALS) Target Goals Individual exercise Rx (1) BP 140/90 or 130/80 if DM or CKD (1) Aerobic active 30+min 5 days per week (1) Nutrition Date: Jul 01, 2019 Assessment: Re-Assessment I Stages of change: Contemplate Lipid- med/supplement ATORVASTATIN Med Change: No Diabetes Diabetes: No Monitor Blood Sugar at home: No Medication Change: No Current Weight (pounds): 146.6 Intervention 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 Consult: No Nurse/patient discussion: Yes Dietary Goals HEART HEALTHY DIET CHOICES Diet Class: Yes (WILL SEE ACCOUNTING MACHINE MECHANIC WHILE IN PROGRAM) Referral to Diabetes education: No Referral to lipid clinic: No Referral to weight mangement p: No Education Eating Healthy Education Goals Met: No (PROGRESSING TOWARD GOALS) Target goal LDL-C<100 if triglycerides are >200 Non-HDL-C should be <130 (1) LDL-C<70 for high risk patients (4) HbA1c<7% (1) BMI<25 Waist cir<40in M/<35in F (1) Education Date: Jul 01, 2019 Assessment: Re-Assessment I Learning Barriers: ready Stages of change: Contemplate Family Support: Yes Tobacco use: No Tobacco Use Smokeless tobacco: No Intervention Referral to smoking cessation: No Individual education and couns: No Tobacco Adjunct: No Education class schedule given: No Attended education classes: No Education: med compliance (PATIENT VERBALIZES UNDERSTANDING OF IMPORTANCE OF MEDICATION COMPLIANCE) Education Goals Met: No (PROGRESSING TOWARD GOALS) Target Goals Complete cessation of tobacco use (1). Psychosocial Date: Jul 01, 2019 Assessment: Re-Assessment I Stages of change: Contemplate Intervention Physician Consult: No Physician Referral: No Med Change: No Stress Management Class: No Uses Stress Management Skills: Yes Education Goals Met: No (PROGRESSING TOWARD GOALS) Target Goal Assess presence or absence of depression using a valid screening tool (1). Maximize coping skills (2). Positive support system (2). Patient/Program Goal Preventative Medication: Yes Aspirin, Yes Clopidogrel, Yes Beta blockade, Yes Statin/OTR lipid Lowering Fall Risk Assess: Yes (NOT A FALL RISK) Provider Assessment Session Number: 2 Provider Assessment: Proceed with rehab (POOR ATTENDENCE AT THIS POINT IN PROGRAM) Alan Shanks RN Jul 01, 2019 18:16
== END 2019-07-16 ==
LOC: M CR 16:00
PROVIDERS: ATTEND Internal Medicine
DX: Z98.61 Coronary angioplasty status (principal)

== ENCOUNTER 2019-07-18 14:22 | Outpatient (RCR) | payer MEDICARE ==
[~2019-07-18 14:22] MED LIST changes: +BISO5TAB14 PO; -BISO5TAB9 PO; -MECL-68 PO; +MECL1TAB31 PO
--- NOTE | 2019-07-22 11:33 | CARECAPL ---
Assessment Account #s: Re-Assessment II General Diagnoses: Stent, NSTEMI Date of event: May 14, 2019 Physician: Bari Case MD Allergies: Coded Allergies: Sulfa (Sulfonamide Antibiotics) (Verified Adverse Reaction, Unknown, POTASSIUM ELEVATION, 05/13/19) oxycodone (Verified Adverse Reaction, Unknown, MAKES HIM FEEL "LOOPY", 05/13/19) Date Entered Program: Jul 01, 2019 Risk strat for cardiac event: High Exercise Date: Jul 22, 2019 Assessment: Re-Assessment II Stages of change: Contemplate Exercise Prescription Modalities initiated: Treadmill (1.3 MTS 1.99 RPE 3 15 MINUTES), Nustep (L2 MTS 2.8 RPE 3), Arm Aerometer (1.0 MTS 1.8 RPE 3 7 MNUTES), Dumbells, Recumbent Bike (R1 MTS 5.1 RPE 3 7 MINUTES) Duration (Minutes) 30 - 60 minutes total exercise a day. 15 - 20 work intervals in minutes. PRN rest intervals in minutes. Functional Capacity Goal Sustained Metabolic Equivalent of a task (MET) goal of 3.5-4.0 for 15-20 minutes. Intensity: 3-Moderate Progression (METS) Increase by: METS every: sessions Angina with ex: No Weight (pounds): 2 Reps: 6-8 Hypertension: Yes Resting 142/76 Peak Exercise BP 148/86 Medications Scheduled Allopurinol (Zyloprim), 300 MG PO DAILY, (Reported) Aspirin (Aspir 81), 81 MG PO DAILY, (Reported) Atorvastatin Calcium (Atorvastatin Calcium), 40 MG PO DAILY, (Reported) Carvedilol (Carvedilol), 3.125 MG PO BID, (Reported) Clopidogrel Bisulfate (Plavix), 75 MG PO DAILY, (Reported) Escitalopram Oxalate (Lexapro), 20 MG PO DAILY, (Reported) Gabapentin (Gabapentin), 400 MG PO BID, (Reported) Levothyroxine Sodium (Levothyroxine Sodium), 25 MCG PO DAILY, (Reported) Pantoprazole Sodium (Pantoprazole Sodium), 40 MG PO DAILY, (Reported) Education Goals Met: No (PROGRESSING TOWARD GOALS) Target Goals Individual exercise Rx (1) BP 140/90 or 130/80 if DM or CKD (1) Aerobic active 30+min 5 days per week (1) Nutrition Date: Jul 22, 2019 Assessment: Re-Assessment II Stages of change: Contemplate Current Weight (pounds): 146.6 Intervention Diet Class: No (WILL SEE THIS PROGRAM) Education Goals Met: No (PROGRESSING TOWARD GOALS) Target goal LDL-C<100 if triglycerides are >200 Non-HDL-C should be <130 (1) LDL-C<70 for high risk patients (4) HbA1c<7% (1) BMI<25 Waist cir<40in M/<35in F (1) Education Date: Jul 22, 2019 Assessment: Re-Assessment II Education Goals Met: No (PROGRESSING TOWARD GOALS) Target Goals Complete cessation of tobacco use (1). Psychosocial Date: Jul 22, 2019 Assessment: Re-Assessment II Stress Management Class: Yes Education Goals Met: No (PROGRESSING TOWARD GOALS) Target Goal Assess presence or absence of depression using a valid screening tool (1). Maximize coping skills (2). Positive support system (2). Provider Assessment Session Number: 3 Provider Assessment: No changes (POOR ATTENDANCE ) Marbella Oakley RN Jul 22, 2019 11:33
--- NOTE | 2019-08-05 14:14 | CARECAPL ---
Assessment Account #s: Discharge (in [place] until September) General Diagnoses: Stent, NSTEMI Date of event: May 14, 2019 Physician: Bari Case MD Allergies: Coded Allergies: Sulfa (Sulfonamide Antibiotics) (Verified Adverse Reaction, Unknown, POTASSIUM ELEVATION, 05/13/19) oxycodone (Verified Adverse Reaction, Unknown, MAKES HIM FEEL "LOOPY", 05/13/19) Date Entered Program: Jul 01, 2019 Risk strat for cardiac event: High Exercise Assessment: Followup/Discharge Stages of change: Contemplate Exercise Prescription Plan TO EDUCATE AND BUILD ENDURANCE THROUGH MONITORED EXERCISE Modalities initiated: Treadmill (METS=1.99/RPE=4), Nustep (METS=2.8/RPE=3), Arm Aerometer (METS=1.8/RPE=3), Dumbells (2#/RPE=3), Recumbent Bike (METS=5.1/RPE=3) Frequency: 3 Duration (Minutes) 30 - 60 minutes total exercise a day. 15 - 20 work intervals in minutes. PRN rest intervals in minutes. Functional Capacity Goal Sustained Metabolic Equivalent of a task (MET) goal of 2.5-3.5 for 15-20 minutes. Intensity: 3-Moderate Progression (METS) Increase by: METS every: sessions Angina with ex: No Target Heart Rate R+35-40 BASED ON BETA ROE THERAPY Resistance Training: Yes Weight (pounds): 2 Reps: 8-12 Hypertension: Yes Hypertension controlled with: Medication Resting 142/76 Peak Exercise BP 148/86 Medications Scheduled Allopurinol (Zyloprim), 300 MG PO DAILY, (Reported) Aspirin (Aspir 81), 81 MG PO DAILY, (Reported) Atorvastatin Calcium (Atorvastatin Calcium), 40 MG PO DAILY, (Reported) Carvedilol (Carvedilol), 3.125 MG PO BID, (Reported) Clopidogrel Bisulfate (Plavix), 75 MG PO DAILY, (Reported) Escitalopram Oxalate (Lexapro), 20 MG PO DAILY, (Reported) Gabapentin (Gabapentin), 400 MG PO BID, (Reported) Levothyroxine Sodium (Levothyroxine Sodium), 25 MCG PO DAILY, (Reported) Pantoprazole Sodium (Pantoprazole Sodium), 40 MG PO DAILY, (Reported) Current BP 118/68 Med Change: No Intervention Resistance Training: Yes Education Goals Met: No (POOR ATTENDENCE/IN [place] UNTIL SEPTEMBER) Target Goals Individual exercise Rx (1) BP 140/90 or 130/80 if DM or CKD (1) Aerobic active 30+min 5 days per week (1) Nutrition Date: Aug 05, 2019 Assessment: Followup/Discharge Stages of change: Contemplate Med Change: No Diabetes Diabetes: No Medication Change: No Weight Management Weight (lbs): 146.6 Special Diet: low salt, low-fat Current Weight (pounds): 146.6 Intervention Nurse Auditor Consult: No Nurse/patient discussion: Yes Dietary Goals ENCOURAGED HEART HEALTHY DIET Referral to Diabetes education: No Referral to lipid clinic: No Referral to weight mangement p: No Education Eating Healthy Education Goals Met: No (POOR ATTENDENCE/IN [place] UNTIL SEPTEMBER) Target goal LDL-C<100 if triglycerides are >200 Non-HDL-C should be <130 (1) LDL-C<70 for high risk patients (4) HbA1c<7% (1) BMI<25 Waist cir<40in M/<35in F (1) Education Date: Aug 05, 2019 Assessment: Followup/Discharge Stages of change: Contemplate Family Support: Yes Tobacco use: No Tobacco Use Smokeless tobacco: No Intervention Referral to smoking cessation: No Individual education and couns: No Tobacco Adjunct: No Education class schedule given: No Attended education classes: No Education Goals Met: No (POOR ATTENDENCE/IN [place] UNTIL SEPTEMBER) Target Goals Complete cessation of tobacco use (1). Psychosocial Date: Aug 05, 2019 Assessment: Followup/Discharge Stages of change: Contemplate Intervention Physician Consult: No Physician Referral: No Med Change: No Stress Management Class: No Education Goals Met: No (POOR ATTENDENCE/IN [place] UNTIL SEPTEMBER) Target Goal Assess presence or absence of depression using a valid screening tool (1). Maximize coping skills (2). Positive support system (2). Patient/Program Goal Preventative Medication: Yes Aspirin, Yes Beta blockade, Yes Statin/OTR lipid Lowering Fall Risk Assess: Yes (NOT A FALL RISK) Provider Assessment Session Number: 3 Alan Shanks RN Aug 05, 2019 14:14
== END 2019-08-16 ==
LOC: M CR 14:22
PROVIDERS: ATTEND Internal Medicine
DX: Z98.61 Coronary angioplasty status (principal)

== ENCOUNTER → 2019-07-19 | Outpatient (CLI) | payer MEDICARE ==
[~2019-07-19] MED LIST changes: -BISO5TAB14 PO; +BISO5TAB9 PO; +MECL-68 PO; -MECL1TAB31 PO
--- NOTE | 2019-07-19 12:05 | REP ---
Clinical: Chronic renal disease. Technique: Real time kennedy scale ultrasound examination using curved array transducer. Findings: The bilateral kidneys are normal in reniform shape and demonstrate increased central sinus fat and increased parenchymal echo texture consistent with chronic renal disease. No hydronephrosis. Right kidney measures 9.3 x 4.9 x 4.9 cm and includes 1.9 cm upper pole and 1.8 cm lower pole cysts. Left kidney measures 9.5 x 4.2 x 4.4 cm and includes 1.1 cm lower pole cyst. Bladder is unremarkable. Impression: Evidence for chronic medical renal disease. Few scattered cysts. No hydronephrosis. Electronically Signed by Reagan Sin MD 07/19/2019 11:56 A
== END ==
LOC: M RAD 09:08
PROVIDERS: ATTEND Internal Medicine
DX: N18.9 Chronic kidney disease, unspecified (principal); N28.1 Cyst of kidney, acquired

== ENCOUNTER → 2019-10-22 | Outpatient (REF) | payer MEDICARE ==
[~2019-10-22] MED LIST changes: +BISO5TAB14 PO; -BISO5TAB9 PO; -MECL-68 PO; +MECL1TAB31 PO
[2019-10-22 12:41] LABS: PERCENT SATURATION 12.1 % (19.7-50.0)
== END ==
LOC: M LAB REF 12:12
PROVIDERS: ATTEND Internal Medicine
DX: D64.9 Anemia, unspecified (principal)

== ENCOUNTER → 2019-11-22 | Outpatient (REF) | payer MEDICARE ==
[2019-11-22 17:28] LABS: PERCENT SATURATION 93.9 % (19.7-50.0)
== END ==
LOC: M LAB REF 16:01
PROVIDERS: ATTEND Internal Medicine
DX: D50.9 Iron deficiency anemia, unspecified (principal)

== ENCOUNTER → 2020-01-30 | Outpatient (REF) | payer MEDICARE ==
[~2020-01-30] MED LIST changes: -ASPI81TA85 PO; +ASPI81TA86 PO; +LEXA1TAB2 PO; +NITR4TASL SL; +PANT40TA29 PO; -PANT40TA3 PO; -VITA1TAB23 PO; +VITA250T20 PO
[2020-01-30 14:01] LABS: PERCENT SATURATION 24.7 % (19.7-50.0)
== END ==
LOC: M LAB REF 12:02
PROVIDERS: ATTEND Internal Medicine
DX: D50.9 Iron deficiency anemia, unspecified (principal)

== ENCOUNTER 2020-04-16 23:00 | Observation (INO) | payer MEDICARE ==
[~2020-04-16] VITALS: Ht 165.1 cm; Wt 65.9 kg
[~2020-04-16 23:00] MED LIST changes: -LEXA1TAB2 PO; -NITR4TASL SL
[2020-04-16 23:34] LABS: BASO % 0.5 % (0.0-1.0); EOS # 0.1 10^3/uL (0.0-0.5); EOS % 1.4 % (0.0-3.0); HEMATOCRIT 29.4 % (42.0-52.0); HEMOGLOBIN 9.8 g/dl (13.5-17.5); LYMPH # 1.2 10^3/uL (1.5-5.0); LYMPH % 18.3 % (24.0-44.0); MEAN CORPUSCULAR HEMOGLOBIN 36.2 pg (27.0-33.0); MEAN CORPUSCULAR HGB CONC 33.3 g/dl (32.0-36.5); MEAN CORPUSCULAR VOLUME 108.5 fl (80.0-96.0); MONO # 0.8 10^3/uL (0.0-0.8); MONO % 11.9 % (0.0-5.0); NEUTROPHILS # 4.3 10^3/uL (1.5-8.5); PLATELET COUNT, AUTOMATED 207 10^3/uL (150-450); RED BLOOD COUNT 2.71 10^6/uL (4.30-6.10); WHITE BLOOD COUNT 6.5 10^3/uL (4.0-10.0)
[2020-04-16 23:47] LABS: INR 0.97; PROTHROMBIN TIME 13.1 SECONDS (12.5-14.3)
[2020-04-16 23:48] LABS: PARTIAL THROMBOPLASTIN TIME 28.5 SECONDS (24.2-38.5)
[2020-04-17 00:03] LABS: ALBUMIN 3.5 GM/DL (3.2-5.2); ALT/SGPT 13 U/L (12-78); BILIRUBIN,DIRECT 0.2 MG/DL (0.0-0.2); BILIRUBIN,TOTAL 0.5 MG/DL (0.2-1.0); BLOOD UREA NITROGEN 30 MG/DL (7-18); CALCIUM LEVEL 8.9 MG/DL (8.8-10.2); CARBON DIOXIDE LEVEL 27 MEQ/L (21-32); CHLORIDE LEVEL 110 MEQ/L (98-107); CK-MB VALUE MASS 2.6 NG/ML (<3.6); CPK CREATINE PHOSPHOKINASE 67 U/L (39-308); CREATININE FOR GFR 1.53 MG/DL (0.70-1.30); GLOMERULAR FILTRATION RATE 45.9 (>35); GLUCOSE, FASTING 112 MG/DL (70-100); LIPASE 172 U/L (73-393); MB/CK RELATIVE INDEX 3.88 (< OR =4); NT-PRO BNP 327 PG/ML (<450); POTASSIUM SERUM 3.8 MEQ/L (3.5-5.1); SODIUM LEVEL 144 MEQ/L (136-145); TOTAL PROTEIN 6.6 GM/DL (6.4-8.2); TROPONIN I < 0.02 NG/ML (< 0.10)
--- NOTE | 2020-04-17 01:07 | REPVR ---
PROCEDURE INFORMATION: Exam: XR Chest, 1 View Exam date and time: 04/17/2020 12:12 AM Age: 89 years old Clinical indication: Other: Chest pain TECHNIQUE: Imaging protocol: XR of the chest Views: 1 view. COMPARISON: CR PORTABLE CHEST X-RAY 06/22/2019 4:09 PM FINDINGS: Lungs: The lungs are unchanged. Pleural space: Unremarkable. No pleural effusion. No pneumothorax. Heart/Mediastinum: The heart and mediastinum are unchanged. Bones/joints: Status post sternotomy. IMPRESSION: Stable chest since 06/22/2019. No acute interval process is identified. Electronically signed by: Teddy De Los Santos On 04/17/2020 01:06:26 AM
[2020-04-17] MEDS ORDERED: ASPIRIN 81 MG CHEW TABLET PO STA (01:09)
[2020-04-17] MEDS ORDERED: ACETAMINOPHEN TAB 650MG DOSE (2X325MG) PO PRN (01:15)
[2020-04-17] MEDS ORDERED: MOM 30ML SUSPENSION UDC PO PRN (01:15)
[2020-04-17] MEDS ORDERED: MAALOX 30 ML SUSP *UDC PO PRN (01:15)
[2020-04-17] MEDS ORDERED: NITROGLYCERIN 0.4 MG SUBL TABLET SL PRN (01:15)
[2020-04-17] MEDS ORDERED: PLAV1TAB2 PO (01:43)
[2020-04-17] MEDS ORDERED: CARV3.12 PO (01:43)
[2020-04-17] MEDS ORDERED: LEXA1TAB2 PO (01:43)
--- NOTE | 2020-04-17 04:06 | HPEPDOC ---
[facility] Medical History & Physical Date of Admission Apr 17, 2020 Date of Service: Apr 17, 2020 Primary Care Physician: Jr Ray Collins Attending Physician: MICHELLE HARRIS MD History and Physical TIME OF SERVICE: 410AM CHIEF COMPLAINT: chest pain HISTORY OF PRESENT ILLNESS: This 89 yr old M has been having 1-2/10 in severity, left sided, relapsing and remitting, sharp chest pain that occurs mostly while he is lying down or sitting down for about 1 month. The pain usually lasts 3-4 min and resolves on its own. Yesterday evening at about 10:30 PM the chest pain occurred while he was watching TV and was 3/10 in severity so he decided to come to the hospital for evaluation. He has also had a cough productive of clear sputum. He denies having dyspnea, or lower extremity swelling. He thinks his last stress test was 5 years ago and was normal; he also reports having an echo a few years ago but doesn't remember the results of the test REVIEW OF SYSTEMS: 12 point review of systems negative except as listed in HPI PAST MEDICAL/ SURGICAL HISTORY: Chronic CAD / CABG/PCI with placement of 2 stents Dyslipidemia OA CKD 3 Chronic Hypertension Hypothyroidism Diverticulitis Bilateral knee replacements Right hip replacement L4-L5 fusion Rotator cuff surgery Bilateral cataract surgery Unsteady gait uses cane SOCIAL HISTORY: He is a former smoker He doesn't drink He lives with his son-in-law and daughter He has 3 grandchildren and one great grandchild FAMILY HISTORY: Both of his twin brothers of prostate cancer Both his parents in their 90s ALLERGIES: Please see below. HOME MEDICATIONS: Please see below. PHYSICAL EXAMINATION: Vital Signs Date Time Temp Pulse Resp B/P (MAP) Pulse Ox O2 Delivery O2 Flow Rate FiO2 04/16/20 23:00 98.4 78 18 138/65 (89) 100 Room Air GEN: well-nourished / well developed/ NAD INTEGUMENT: not flushed/ not jaundice HEENT: lips acyanotic /mucus membranes moist and pink CVS: RRR/holo-systolic murmur/ radial pulses equal bilaterally intact / no lower extremity edema / chest pain not reproducible with palpation of the chest LUNGS: able to speak full sentences without stopping to take a breath / no coughing / lungs are clear to auscultation bilaterally on room air ABDOMEN: Contour (scaphoid) / soft & not tender with palpation MSK/EXTREMITIES: range of motion intact in all 4 extremities NEURO: CN 2-12 are grossly intact / speech is not dysarthric PSYCH: alert and oriented to person place and time/ able to understand and follow all commands LABORATORY DATA: 04/16/20 23:20 Immature Granulocyte % (Auto) 0.9, Neutrophils (%) (Auto) 67.0H, Lymphocytes (%) (Auto) 18.3L, Monocytes (%) (Auto) 11.9H, Eosinophils (%) (Auto) 1.4, Basophils (%) (Auto) 0.5, Neutrophils # (Auto) 4.3, Lymphocytes # (Auto) 1.2L, Monocytes # (Auto) 0.8, Eosinophils # (Auto) 0.1, Basophils # (Auto) 0.0, Nucleated Red Bloo d Cells % (auto) 0.0, Prothrombin Time 13.1, Prothromb Time International Ratio 0.97, Activated Partial Thromboplast Time 28.5, Anion Gap 7L, Glomerular Filtration Rate 45.9, Calcium Level 8.9, Total Bilirubin 0.5, Direct Bilirubin 0.2, Aspartate Amino Transf (AST/SGOT) 12, Alanine Aminotransferase (ALT/SGPT) 13, Alkaline Phosphatase 127H, Total Creatine Kinase 67, Creatine Kinase MB 2.6, Creatine Kinase MB Relative Index 3.88, Troponin I < 0.02, NZ-Onf-F-Type Natriuretic Peptide 327, Total Protein 6.6, Albumin 3.5, Albumin/Globulin Ratio 1.1, Lipase 172, Thyroid Stimulating Hormone (TSH) 4.100H 04/17/20 00:31: Troponin I < 0.02 IMAGING: Chest xray "IMPRESSION: Stable chest since 06/22/2019. No acute interval process is identified. " MICROBIOLOGY: Please see below. ASSESSMENT: is an 89 yr old w a hx of CAD/CABG, HTN, CKD3, hypothyroidism and dyslipidemia who presented w c/o of relapsing and remitting chest pain. PLAN: 1.Chest Pain This chest pain that is left sided, not triggered by exertion and resolves on its own is not typical of cardiac chest pain Other possible causes included GERD, anxiety, or Prinzmetal angina The EKG showed some T wave inversions in V1 and V2 Both the trops x 2 and BNP were wnl Reason for admission: [place] Chest Pain Rule to identify pts that are low risk and safe for early dc = pt not a candidate for early dc and should under go standard eval Plan: admit to med floor under observation / telemetry / f/u serial EKGs & troponins & A1C / if the last trop is neg the day time team may consider early dc and calling to confirm that the pt can f/u with him in the clinic w/in the next few days / for now we will c/w ASA, atorvastatin, Coreg, Plavix and PPI / Acetaminophen PRN for CP 2. CAD/Dyslipidemia Plan: ASA, atorvastatin, Coreg, Plavix 3. Hypothyroidism TSH slightly high Plan: can f/u w PCP on compliance w levothyroxine 4. Macrocytic Anemia Hg at baseline Plan: f/u w PCP 5. Frequent falls / Unsteady Gait Most of the falls occurred while he was walking and didn't' have his cane Plan: reenforced importance of compliance w cane / he f/u w PCP for referral for home PT 6. CKD 3 Cr at baseline Plan: f/u w PCP DVT PROPHYLAXIS: SCDs DISPOSITION: likely home in the morning Home Medications Scheduled Allopurinol (Zyloprim) 300 Mg Tab, 300 MG PO DAILY Aspirin (Aspir 81) 81 Mg Tab, 81 MG PO DAILY Atorvastatin Calcium (Atorvastatin Calcium) 20 Mg Tab, 40 MG PO DAILY Carvedilol (Carvedilol) 3.125 Mg Tablet, 3.125 MG PO BID Clopidogrel Bisulfate (Plavix) 75 Mg Tablet, 75 MG PO DAILY Escitalopram Oxalate (Lexapro) 20 Mg Tablet, 20 MG PO DAILY Levothyroxine Sodium (Levothyroxine Sodium) 25 Mcg Tab, 25 MCG PO DAILY Pantoprazole Sodium (Pantoprazole Sodium) 40 Mg Tab, 40 MG PO DAILY Allergies Coded Allergies: Sulfa (Sulfonamide Antibiotics) (Verified Adverse Reaction, Unknown, P OTASSIUM ELEVATION, 05/13/19) oxycodone (Verified Adverse Reaction, Unknown, MAKES HIM FEEL "LOOPY", 05/13/19) A-FIB/CHADSVASC A-FIB History Current/History of A-Fib/PAF?: No Current PO Anticoag Therapy: No MICHELLE HARRIS MD Apr 17, 2020 04:06
[2020-04-17 07:08] LABS: HEMATOCRIT 26.3 % (42.0-52.0); HEMOGLOBIN 8.6 g/dl (13.5-17.5); MEAN CORPUSCULAR HEMOGLOBIN 35.4 pg (27.0-33.0); MEAN CORPUSCULAR HGB CONC 32.7 g/dl (32.0-36.5); MEAN CORPUSCULAR VOLUME 108.2 fl (80.0-96.0); PLATELET COUNT, AUTOMATED 161 10^3/uL (150-450); RED BLOOD COUNT 2.43 10^6/uL (4.30-6.10); WHITE BLOOD COUNT 6.8 10^3/uL (4.0-10.0)
[2020-04-17 07:32] LABS: HEMOGLOBIN A1c 5.2 %
[2020-04-17 07:40] LABS: BLOOD UREA NITROGEN 28 MG/DL (7-18); CALCIUM LEVEL 8.5 MG/DL (8.8-10.2); CARBON DIOXIDE LEVEL 28 MEQ/L (21-32); CHLORIDE LEVEL 111 MEQ/L (98-107); CHOLESTEROL LEVEL 80 MG/DL (<200); CHOLESTEROL RISK RATIO 2.051 (<5); CREATININE FOR GFR 1.36 MG/DL (0.70-1.30); GLOMERULAR FILTRATION RATE 52.5 (>35); GLUCOSE, FASTING 108 MG/DL (70-100); HDL CHOLESTEROL 39 MG/DL (>40); LDL CHOLESTEROL 28 MG/DL (<100); NON-HDL-C 41 MG/DL; SODIUM LEVEL 144 MEQ/L (136-145); TRIGLYCERIDES LEVEL 64 MG/DL (<150); TROPONIN I < 0.02 NG/ML (< 0.10)
[2020-04-17] MEDS ORDERED: ESCITALOPRAM OXALATE 10 MG TAB (LEXAPRO) PO SCH (09:00)
[2020-04-17] MEDS ORDERED: ASPIRIN 81 MG ENTERIC TAB PO SCH (09:00)
[2020-04-17] MEDS ORDERED: ASPIRIN 81 MG CHEW TABLET PO SCH (09:00)
[2020-04-17] MEDS ORDERED: allopurinoL 300 MG TAB PO SCH (09:00)
[2020-04-17] MEDS ORDERED: ENOXAPARIN 30MG/0.3ML SYRINGE (J1650 PER 10MG) SC SCH (09:00)
[2020-04-17] MEDS ORDERED: CLOPIDOGREL 75 MG TAB PO SCH (09:00)
[2020-04-17] MEDS ORDERED: LEVOTHYROXINE 25MCG TABLET (0.025MG) PO SCH (09:00)
[2020-04-17] MEDS ORDERED: ATORVASTATIN 20 MG TAB PO SCH (09:00)
[2020-04-17] MEDS ORDERED: PANTOPRAZOLE 40MG TAB (PROTONIX) PO SCH (09:00)
[2020-04-17] MEDS ORDERED: CARVedilol 3.125 MG TAB PO SCH (09:00)
--- NOTE | 2020-04-17 09:20 | ECGEPIP ---
[facility] - ED Test Date: 2020-04-16 Pat Name: KARRI CASANOVA Department: Room: [place] [address] Gender: Male Seam Checker: APRIL : 1930 Requested By: JENNIFER GOMEZ Order Number: [id number] Reading MD: Sandrita Sheets Measurements Intervals [place] Rate: 69 P: 0 DE: 175 QRS: -32 QRSD: 93 T: 68 QT: 412 QTc: 444 Interpretive Statements SINUS RHYTHM MARKED LEFT AXIS DEVIATION INCOMPLETE RIGHT BUNDLE BRANCH BLOCK MODERATE VOLTAGE CRITERIA FOR LVH, CONSIDER NORMAL VARIANT NONSPECIFIC T-WAVE ABNORMALITY DECREASED RATE/ECTOPY 06/22/19 Electronically Signed on 04-17-2020 9:20:08 EDT by Sandrita Sheets
[2020-04-17] MEDS ORDERED: NITR4TASL SL (12:02)
[2020-04-17 13:13] VITALS: BP 109/53
--- NOTE | 2020-04-17 19:33 | DS.PDOC ---
Discharge Summary General Date of Admission Apr 16, 2020 at 23:01 Date of Discharge Apr 17, 2020 Primary Care Physician: ZACH HAYES DO Discharge Summary PROCEDURES PERFORMED DURING STAY: None ADMITTING DIAGNOSES: 1. Chest pain 2. Coronary artery disease 3. Dyslipidemia 4. Hypothyroidism 5. Macrocytic anemia 6. Chronic kidney disease stage III DISCHARGE DIAGNOSES: 1. Chest pain 2. Coronary artery disease 3. Dyslipidemia 4. Hypothyroidism 5. Macrocytic anemia 6. Chronic kidney disease stage III COMPLICATIONS/CHIEF COMPLAINT: Chest Pain. HISTORY OF PRESENT ILLNESS: Mr. Dominguez is an 89-year-old male with coronary artery disease status post stent and CABG who is here for chest pain which started about 1 month. Rated the pain 1-2 out of 10 in severity. History of the pain is a sharp pain that occurs mostly when he is lying down. The evening prior to admission, the pain occurred when he is watching TV. This pain was rated 3 out of 10, so he decided to come into the ED. While in the ED, EKG demonstrated some T-wave inversions in leads V1 and V2. Initial troponin was negative at less than 0.02 HOSPITAL COURSE: Patient was seen again in the morning. 6 hour troponin was also less than 0.02. He has no active chest pain. He says the sublingual nitroglycerin does help. He denied any fever or chills, lightheadedness or dizziness, chest pain, dyspnea, abdominal pain, or dysuria. He felt well and felt ready for home. His survey supervisor is Dr. Case. and I called his office to schedule an appointment for him on Monday at 1:15 PM. DISCHARGE MEDICATIONS: Please see below. ALLERGIES: Please see below. PHYSICAL EXAMINATION ON DISCHARGE: VITAL SIGNS: Please see below. GENERAL: Comfortable, in no apparent distress. HEENT: Head normocephalic/atraumatic, EOMI, sclera clear. NECK: Supple RESPIRATORY: Lungs clear to auscultation bilaterally, no rales, wheeze or rhonchi. CARDIOVASCULAR: Regular rate and rhythm. ABDOMEN: Soft, nontender, no guarding or rebound tenderness. Normal bowel sounds. MUSCLE SKELETAL: Muscle strength 5/5 in all extremities. NEUROLOGICAL: CN 312 grossly intact, no focal deficits noted. PSYCHOLOGICAL: Normal mood and affect LABORATORY DATA: Please see below. IMAGING: Chest x-ray Stable chest since 06/22/2019. No acute interval process is identified. PROGNOSIS: Stable ACTIVITY: As tolerated. DIET: A low cholesterol diet DISCHARGE PLAN: Home DISPOSITION: 01 Home, Self-Care. DISCHARGE INSTRUCTIONS: 1. Keep appointment with cardiology, Dr. Case 2. Follow with her PCP within a week. DISCHARGE CONDITION: Stable Total time spent on discharge planning, discharge summary, and med reconciliation: 45 minutes Vital Signs/I&Os Vital Signs Date Time Temp Pulse Resp B/P (MAP) Pulse Ox O2 Delivery O2 Flow Rate FiO2 04/17/20 13:13 96.4 63 16 109/53 (71) 99 Room Air Laboratory Data Labs 24H Laboratory Tests 2 04/16/20 23:20: Immature Granulocyte % (Auto) 0.9, Neutrophils (%) (Auto) 67.0H, Lymphocytes (%) (Auto) 18.3L, Monocytes (%) (Auto) 11.9H, Eosinophils (%) (Auto) 1.4, Basophils (%) (Auto) 0.5, Neutrophils # (Auto) 4.3, Lymphocytes # (Auto) 1.2L, Monocytes # (Auto) 0.8, Eosinophils # (Auto) 0.1, Basophils # (Auto) 0.0, Nucleated Red Blood Cells % (auto) 0.0, Prothrombin Time 13.1, Prothromb Time International Ratio 0.97, Activated Partial Thromboplast Time 28.5, Anion Gap 7L, Glomerular Filtration Rate 45.9, Calcium Level 8.9, Total Bilirubin 0.5, Direct Bilirubin 0.2, Aspartate Amino Transf (AST/SGOT) 12, Alanine Aminotransferase (ALT/SGPT) 13, Alkaline Phosphatase 127H, Total Creatine Kinase 67, Creatine Kinase MB 2.6, Creatine Kinase MB Relative Index 3.88, Troponin I < 0.02, AG-Gtv-U-Type Natriuretic Peptide 327, Total Protein 6.6, Albumin 3.5, Albumin/Globulin Ratio 1.1, Lipase 172, Thyroid Stimulating Hormone (TSH) 4.100H 04/17/20 00:31: Troponin I < 0.02 04/17/20 06:27: Estimated Mean Plasma Glucose 103, Hemoglobin A1c 5.2 04/17/20 06:36: Nucleated Red Blood Cells % (auto) 0.0, Anion Gap 5L, Glomerular Filtration Rate 52.5, Calcium Level 8.5L, Troponin I < 0.02, Triglycerides Level 64, Total Cholesterol 80, LDL Cholesterol 28, Non-HDL Cholesterol (LDL + VLDL) 41, Total HDL Cholesterol 39L, Cholesterol/HDL Ratio 2.051 CBC/BMP Laboratory Tests 04/16/20 23:20 04/17/20 06:36 Discharge Medications Scheduled Allopurinol (Zyloprim) 300 Mg Tab, 300 MG PO DAILY, (Reported) Aspirin (Aspir 81) 81 Mg Tab, 81 MG PO DAILY, (Reported) Atorvastatin Calcium (Atorvastatin Calcium) 20 Mg Tab, 40 MG PO DAILY, (Reported) Carvedilol (Carvedilol) 3.125 Mg Tablet, 3.125 MG PO BID, (Reported) Clopidogrel Bisulfate (Plavix) 75 Mg Tablet, 75 MG PO DAILY, (Reported) Escitalopram Oxalate (Lexapro) 20 Mg Tablet, 20 MG PO DAILY, (Reported) Levothyroxine Sodium (Levothyroxine Sodium) 25 Mcg Tab, 25 MCG PO DAILY, (Reported) Pantoprazole Sodium (Pantoprazole Sodium) 40 Mg Tab, 40 MG PO DAILY, (Reported) Scheduled PRN Nitroglycerin (Nitrostat) 0.4 Mg Tab.subl, 0.4 MG SL Q5M PRN for SEE LABEL COMM ENTS Allergies Coded Allergies: Sulfa (Sulfonamide Antibiotics) (Verified Adverse Reaction, Unknown, POTASSIUM ELEVATION, 05/13/19) oxycodone (Verified Adverse Reaction, Unknown, MAKES HIM FEEL "LOOPY", 05/13/19) ZACH HAYES DO Apr 17, 2020 19:33
--- NOTE | 2020-04-19 12:03 | ECGEPIP ---
[facility] Test Date: 2020-04-17 Pat Name: KARRI CASANOVA Department: Room: [place] [address] Gender: Male Business Assistant: RORO : 1930 Requested By: MICHELLE HARRIS Order Number: [id number] Reading MD: Noe Torrez Measurements Intervals [place] Rate: 65 P: 30 [place]: 192 QRS: -28 QRSD: 101 T: 78 QT: 414 QTc: 432 Interpretive Statements SINUS RHYTHM MARKED LEFT AXIS DEVIATION MODERATE VOLTAGE CRITERIA FOR LVH, CONSIDER NORMAL VARIANT NONSPECIFIC T-WAVE ABNORMALITY Compared to prior 3 tracings in the system, no significant changes Electronically Signed on 04-19-2020 12:03:34 EDT by Noe Torrez
== END 2020-04-17 13:47 | disposition home or self-care (01) ==
LOC: M ED 23:00 → M ED INP 23:01 → ENRESERV 04-17 12:29
PROVIDERS: ADMIT Internal Medicine; ATTEND Internal Medicine
DX: R07.9 Chest pain, unspecified (principal); I25.10 Atherosclerotic heart disease of native coronary artery without angina pectoris; E78.5 Hyperlipidemia, unspecified; E03.9 Hypothyroidism, unspecified; D53.9 Nutritional anemia, unspecified; N18.30 Chronic kidney disease, stage 3 unspecified; R05 Cough; M19.90 Unspecified osteoarthritis, unspecified site; I12.9 Hypertensive chronic kidney disease with stage 1 through stage 4 chronic kidney disease, or unspecified chronic kidney disease; K57.92 Diverticulitis of intestine, part unspecified, without perforation or abscess without bleeding; R26.81 Unsteadiness on feet; Z99.89 Dependence on other enabling machines and devices; K21.9 Gastro-esophageal reflux disease without esophagitis; Z79.899 Other long term (current) drug therapy; Z79.82 Long term (current) use of aspirin; Z79.02 Long term (current) use of antithrombotics/antiplatelets; Z88.2 Allergy status to sulfonamides; Z88.5 Allergy status to narcotic agent; Z95.5 Presence of coronary angioplasty implant and graft; Z95.1 Presence of aortocoronary bypass graft; Z87.891 Personal history of nicotine dependence; Z91.81 History of falling
CPT/HCPCS: 36415; 71045; 80048; 80061; 80076; 82550; 82553; 83036; 83690; 83880; 84443; 84484; 85025; 85027; 85610; 85730; 93005; 93041; 94760; 96372; 99285; G0378; J1650

== ENCOUNTER 2020-05-29 17:34 | Emergency (ER) | payer MEDICARE ==
[~2020-05-29] VITALS: Ht 162.6 cm; Wt 64.8 kg
[~2020-05-29 17:34] MED LIST changes: +LEXA1TAB2 PO; +NITR4TASL SL
--- NOTE | 2020-05-29 17:55 | REPVR ---
PROCEDURE INFORMATION: Exam: CT Head Without Contrast Exam date and time: 05/29/2020 5:36 PM Age: 89 years old Clinical indication: Injury or trauma; Fall; Additional info: Trauma on blood thinners TECHNIQUE: Imaging protocol: Computed tomography of the head without contrast. Radiation optimization: All CT scans at this facility use at least one of these dose optimization techniques: automated exposure control; mA and/or kV adjustment per patient size (includes targeted exams where dose is matched to clinical indication); or iterative reconstruction. COMPARISON: CT Head without contrast 02/11/2019 5:26 PM FINDINGS: Brain: There is volume loss. There is white matter lucency consistent with chronic microvascular disease. There is no acute infarct. As seen on series 201 images 19-21, there is a small amount of subarachnoid hemorrhage within left frontal sulci. No parenchymal hemorrhage is identified. There is no extra-axial hematoma. Cerebral ventricles: Ventricular size is proportionate to the prominence of the sulci. No intraventricular hemorrhage. Bones/joints: Unremarkable. No acute fracture. Paranasal sinuses: Visualized sinuses are unremarkable. No fluid levels. Mastoid air cells: Visualized mastoid air cells are well aerated. Soft tissues: Unremarkable. IMPRESSION: 1. Volume loss and chronic microvascular disease. 2. Small amount of left frontal posttraumatic subarachnoid hemorrhage. Electronically signed by: Rolando Angel On 05/29/2020 17:54:53 PM
--- NOTE | 2020-05-29 17:59 | REPVR ---
PROCEDURE INFORMATION: Exam: CT Cervical Spine Without Contrast Exam date and time: 05/29/2020 5:36 PM Age: 89 years old Clinical indication: Injury or trauma; Additional info: Trauma on blood thinners TECHNIQUE: Imaging protocol: Computed tomography images of the cervical spine without contrast. Radiation optimization: All CT scans at this facility use at least one of these dose optimization techniques: automated exposure control; mA and/or kV adjustment per patient size (includes targeted exams where dose is matched to clinical indication); or iterative reconstruction. COMPARISON: No relevant prior studies available. FINDINGS: Bones/joints: There is no fracture. There is minimal C7-T1 anterolisthesis. Vertebral alignment is otherwise normal. There is no focal osseous lesion. Discs/Spinal canal/Neural foramina: There is advanced disc space narrowing at C5-C6. There is no central spinal stenosis in the cervical spine. There is multilevel foraminal stenosis. Soft tissues: Unremarkable. Lungs: Lung apices are normal. IMPRESSION: No fracture of the cervical spine. Electronically signed by: Rolando Angel On 05/29/2020 17:59:20 PM
[2020-05-29] MEDS ORDERED: NS 1,000 ML IV SCH (18:30)
[2020-05-29 18:38] LABS: HEMATOCRIT 27.6 % (42.0-52.0); HEMOGLOBIN 8.9 g/dl (13.5-17.5); MEAN CORPUSCULAR HEMOGLOBIN 35.2 pg (27.0-33.0); MEAN CORPUSCULAR HGB CONC 32.2 g/dl (32.0-36.5); MEAN CORPUSCULAR VOLUME 109.1 fl (80.0-96.0); PLATELET COUNT, AUTOMATED 140 10^3/uL (150-450); RED BLOOD COUNT 2.53 10^6/uL (4.30-6.10); WHITE BLOOD COUNT 6.1 10^3/uL (4.0-10.0)
[2020-05-29] MEDS ORDERED: MORPHINE 2 MG/ML 1ML VIAL (J2270) IV PRN (18:45)
[2020-05-29] MEDS ORDERED: ONDANSETRON 4MG/2ML VIAL IV ONE (18:45)
[2020-05-29 18:59] VITALS: BP 169/69
[2020-05-29 18:59] LABS: CALCIUM LEVEL 8.5 MG/DL (8.8-10.2); CREATININE FOR GFR 1.57 MG/DL (0.70-1.30); GLOMERULAR FILTRATION RATE 44.5 (>35); POTASSIUM SERUM 4.4 MEQ/L (3.5-5.1)
== END 2020-05-29 19:05 | disposition short-term general hospital (02) ==
LOC: EDBD 17:34 → M ED 17:34
DX: S06.6X0A Traumatic subarachnoid hemorrhage without loss of consciousness, initial encounter (principal); S01.81XA Laceration without foreign body of other part of head, initial encounter; W10.8XXA Fall (on) (from) other stairs and steps, initial encounter; Y92.018 Other place in single-family (private) house as the place of occurrence of the external cause; I10 Essential (primary) hypertension; I25.10 Atherosclerotic heart disease of native coronary artery without angina pectoris; Z95.5 Presence of coronary angioplasty implant and graft; Z79.899 Other long term (current) drug therapy; Z79.82 Long term (current) use of aspirin; Z79.01 Long term (current) use of anticoagulants; Z88.1 Allergy status to other antibiotic agents; Z88.2 Allergy status to sulfonamides; Z88.5 Allergy status to narcotic agent
CPT/HCPCS: 70450; 72125; 80048; 85027; 96361; 96374; 96375; 99291; J2270; J2405; U0002

== ENCOUNTER → 2020-06-01 | Outpatient (REF) | payer MEDICARE ==
[2020-06-01 16:39] LABS: PERCENT SATURATION 17.2 % (19.7-50.0)
[2020-06-01 16:51] LABS: FOLATE 12.1 NG/ML
== END ==
LOC: M LAB REF 16:19
PROVIDERS: ATTEND Internal Medicine
DX: D50.9 Iron deficiency anemia, unspecified (principal); R41.81 Age-related cognitive decline

== ENCOUNTER → 2020-10-28 | Outpatient (CLI) | payer MEDICARE ==
[~2020-10-28] MED LIST changes: +GABA-282 PO; -GABA-843 PO; +ISOS1TAB35 PO; -ISOS30TA4 PO
--- NOTE | 2020-10-29 06:55 | REP ---
INDICATION: COUGH COMPARISON: 04/16/2020 TECHNIQUE: PA and lateral. FINDINGS: The mediastinum and cardiac silhouette are stable with evidence for prior sternotomy and CABG. The lung chávez are clear and without acute consolidation, effusion, or pneumothorax. The skeletal structures are intact and normal. IMPRESSION: No acute cardiopulmonary process. <Electronically signed by Reagan Sin > 10/29/20 [id number]
== END ==
LOC: M WUC 14:35
PROVIDERS: ATTEND Physician Assistant
DX: R05 Cough (principal)